=== PATIENT | male | born 1975 | race Caucasian/White ===

== ENCOUNTER 2018-01-28 16:27 | Emergency (ER) | payer MEDICAID ==
[~2018-01-28] VITALS: Ht 165.1 cm; Wt 72.1 kg
[2018-01-28 18:17] VITALS: BP 138/91
== END 2018-01-28 18:17 | disposition home or self-care (01) ==
LOC: ED 16:27
DX: M65.262 Calcific tendinitis, left lower leg (principal); R03.0 Elevated blood-pressure reading, without diagnosis of hypertension
CPT/HCPCS: J1100

== ENCOUNTER 2018-11-29 20:31 | Emergency (ER) | payer SELFPAY ==
[~2018-11-29] VITALS: Ht 167.6 cm; Wt 73.9 kg
[2018-11-29 20:35] VITALS: Ht 167.6 cm; Wt 73.9 kg
[2018-11-29 22:21] VITALS: BP 147/93
== END 2018-11-29 22:21 | disposition home or self-care (01) ==
LOC: ED 20:31
DX: T78.40XA Allergy, unspecified, initial encounter (principal); T78.3XXA Angioneurotic edema, initial encounter; X58.XXXA Exposure to other specified factors, initial encounter